=== PATIENT | male | born 1980 | race Caucasian/White ===

== ENCOUNTER 2018-12-23 18:49 | Emergency (ER) | payer OTHER ==
[~2018-12-23] VITALS: Ht 182.9 cm; Wt 85.4 kg
[~2018-12-23 18:49] MED LIST: FLEXERIL PO; NOHOMEMEDICATIONS; PROMETHAZINE12.5 M1 PO
[2018-12-23 19:30] LABS: ABSOLUTE MONOCYTES 0.5 thou/uL (0.0-1.2); ABSOLUTE NEUTROPHILS 6.4 thou/uL (1.6-8.1); BASOPHILS 0.4 %; EOSINOPHILS 0.3 %; HEMATOCRIT 46.5 % (42.0-52.0); HEMOGLOBIN 16.4 gm/dL (14.0-18.0); LYMPHOCYTES 22.3 %; MCH 32.9 pg (26.0-34.0); MCHC 35.2 g/dL (28.0-37.0); MCV 93.6 fL (80.0-100.0); MONOCYTES 5.1 %; MPV 8.1 fl. (7.2-11.1); NUCLEATED RBCS 0 /100WBC; PLATELET COUNT* 280 thou/uL (150-400); POLYS 71.9 %; RBC 4.97 mil/uL (4.50-6.00); RDW-CV 13.3 % (10.5-14.5); WBC 8.9 thou/uL (4.0-11.0)
[2018-12-23 19:36] LABS: ANION GAP 13 mmol/L (7-16); BUN 11 mg/dL (7-18); CALCIUM 9.4 mg/dL (8.5-10.1); CHLORIDE 99 mmol/L (98-107); CO2 25 mmol/L (21-32); CREATININE 1.2 mg/dL (0.6-1.3); GLUCOSE 123 mg/dL (70-99); SODIUM 137 mmol/L (136-145)
[2018-12-23 19:48] LABS: ALBUMIN 4.7 g/dL (3.4-5.0); ALKALINE PHOSPHATASE 77 U/L (46-116); LIPASE 109 U/L (73-393); MAGNESIUM 1.9 mg/dL (1.8-2.4); SGOT 21 U/L (15-37); SGPT 36 U/L (30-65); TOTAL BILIRUBIN 0.7 mg/dL (<0.1-1.0); TOTAL PROTEIN 8.5 g/dL (6.4-8.2); TROPONIN-I LEVEL <0.06 ng/mL (<0.06)
[2018-12-23] MEDS ORDERED: ATIVAN1 MG PO (20:09)
[2018-12-23] MEDS ORDERED: POTASSIUM20 PO (20:09)
[2018-12-23] MEDS ORDERED: IBUPROFEN 800800 M1 PO (20:19)
[2018-12-23 20:29] VITALS: BP 143/89
--- NOTE | 2018-12-24 12:29 | EKG ---
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 : 1980 Requested By: Yash Engel Order Number: [id number] MD: Alfredito Castaneda Measurements Intervals [place] Rate: 109 P: 73 MI: 121 QRS: 46 QRSD: 96 T: -31 QT: 308 QTc: 415 Interpretive Statements Sinus tachycardia Ventricular premature complex Probable left atrial enlargement LVH with secondary repolarization abnormality No previous ECG available for comparison Electronically Signed On 12-24-2018 12:29:24 CDT by Alfredito Castaneda [email or web address] <ELECTRONICALLY SIGNED> By: Alfredito Castaneda MD, [facility] 12/24/18 1229 1853 1853 Alfredito Castaneda MD, FACC /EPI
== END 2018-12-23 20:29 | disposition home or self-care (01) ==
LOC: M.ERS 18:49
PROVIDERS: Emergency Medicine Emergency Medical Services
DX: F41.9 Anxiety disorder, unspecified (principal); J45.909 Unspecified asthma, uncomplicated; Z88.1 Allergy status to other antibiotic agents; Z88.6 Allergy status to analgesic agent

== ENCOUNTER 2018-12-29 05:49 | Emergency (ER) | payer OTHER ==
[~2018-12-29] VITALS: Ht 182.9 cm; Wt 84.8 kg
[~2018-12-29 05:49] MED LIST changes: +ATIVAN1 MG PO; +IBUPROFEN 800800 M1 PO; +POTASSIUM20 PO
[2018-12-29 06:26] LABS: AMP/METHAMP Negative (Negative); BARBITURATES Negative (Negative); BENZODIAZEPINES Negative (Negative); COCAINE Negative (Negative); METHADONE Negative (Negative); OPIATES Negative (Negative); PCP Negative (Negative); THC POSITIVE (Negative)
[2018-12-29] MEDS ORDERED: HYDROXYZINE HCL25 M2 PO (06:59)
[2018-12-29 07:11] VITALS: BP 169/79
== END 2018-12-29 07:12 | disposition home or self-care (01) ==
LOC: M.ERS 05:49
PROVIDERS: Emergency Medicine
DX: F41.9 Anxiety disorder, unspecified (principal); J45.909 Unspecified asthma, uncomplicated; F17.210 Nicotine dependence, cigarettes, uncomplicated; Z88.1 Allergy status to other antibiotic agents; Z88.6 Allergy status to analgesic agent; Z79.899 Other long term (current) drug therapy